=== PATIENT | female | born 1975 | race Caucasian/White ===

== ENCOUNTER 2019-09-09 21:35 | Emergency (ER) | payer MEDICAID ==
[~2019-09-09] VITALS: Ht 170.2 cm; Wt 75.0 kg
[2019-09-09] MEDS ORDERED: EPINEPHRINE 1:1000 1 MG/ML AMP IM ONE (22:15)
[2019-09-09] MEDS ORDERED: DIPHENHYDRAMINE 50MG/ML VIAL IV ONE (22:15)
[2019-09-09] MEDS ORDERED: FAMOTIDINE 20MG TABLET PO ONE (22:15)
[2019-09-09] MEDS ORDERED: METHYLPREDNISOLONE SOD SUCC 125 MG/2 ML VIAL IV ONE (22:15)
[2019-09-09] MEDS ORDERED: DIPHENHYDRAMINE 50MG/ML VIAL ONE (22:52)
[2019-09-09] MEDS ORDERED: SODIUM CHLORIDE 0.9% 1,000 ML IV ONE (22:57)
[2019-09-09 23:20] LABS: CHLORIDE 109 mEq/L (98-107)
[2019-09-09 23:43] LABS: BASOPHILS % 0.2 % (0.0-2.0); EOSINOPHILS % 1.2 % (0.0-5.0); HEMATOCRIT. 39.6 % (36.0-48.0); HEMOGLOBIN. 12.9 g/dL (12.0-16.0); LYMPHOCYTES % 22.2 % (20.0-50.0); MEAN CORPUSCULAR HEMOGLOBIN 28.2 pg (28.0-32.0); MEAN CORPUSCULAR VOLUME 86.5 fL (81.0-99.0); MEAN PLATELET VOLUME 7.9 fl (7.4-10.4); MONOCYTES % 5.5 % (2.0-8.0); NEUTROPHILS % 70.9 % (40.0-76.0); PLATELET 268 x1000/uL (130-400); RED BLOOD CELL COUNT 4.58 mill/uL (4.2-5.4); RED CELL DISTRIBUTION WIDTH 15.6 % (11.6-14.6)
[2019-09-10 02:07] VITALS: BP 118/71
== END 2019-09-10 02:08 | disposition home or self-care (01) ==
LOC: ER 21:35
DX: T78.40XA Allergy, unspecified, initial encounter (principal); L50.9 Urticaria, unspecified; Z98.890 Other specified postprocedural states; Z87.19 Personal history of other diseases of the digestive system; Z91.018 Allergy to other foods; X58.XXXA Exposure to other specified factors, initial encounter
CPT/HCPCS: 36415; 80053; 85025; 96372; 96374; 96375; 99284; J1200; J2930; J3490; J7030

== ENCOUNTER 2020-03-09 20:05 | Emergency (ER) | payer MEDICAID ==
[~2020-03-09] VITALS: Ht 172.7 cm; Wt 82.0 kg
[2020-03-09 20:07] VITALS: BP 119/78
== END 2020-03-10 01:26 | disposition left against medical advice (07) ==
LOC: ER 20:14
DX: R21 Rash and other nonspecific skin eruption (principal); Z53.21 Procedure and treatment not carried out due to patient leaving prior to being seen by health care provider